=== PATIENT | female | born 1945 | race Caucasian/White ===

== ENCOUNTER → 2018-08-30 | Outpatient (CLI) | payer OTHER ==
[~2018-08-30] MED LIST: ASPIRIN81 M2 PO; GLIPIZIDE ER5 MG PO; JANUVIA 50 MG T50 M1 PO; METFORMIN HCL1000 M1 PO; NORCO 5-325 TA1 EACH PO; SIMVASTATIN10 MG PO; TAMSULOSIN HCL0.4 M1 PO
== END ==
LOC: RAD 09:49
DX: M47.816 Spondylosis without myelopathy or radiculopathy, lumbar region (principal); M16.12 Unilateral primary osteoarthritis, left hip; M41.86 Other forms of scoliosis, lumbar region; G89.29 Other chronic pain